=== PATIENT | female | born 1945 | race Caucasian/White ===

== ENCOUNTER → 2022-07-05 14:04 | Outpatient (CLI) | payer MEDICARE, SELFPAY ==
--- NOTE | 2022-07-05 14:09 | XR_ITS ---
FINAL REPORT CLINICAL HISTORY: LT FOOT PAIN COMPARISON: None none FINDINGS: LEFT FOOT Three views of the left foot demonstrate no acute fracture or dislocation. 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 There are moderate changes of hypertrophic osteoarthritis at the 2nd metatarsophalangeal joint as well. The soft tissues are unremarkable. IMPRESSION: No acute bony abnormality. Marked osteoarthritic degenerative changes at the 1st and 2nd metatarsophalangeal joints as described above. Reviewed, Interpreted and Dictated by Miko Madrigal MD Transcribed by Yanira Paredes Authenticated and [facility]
== END ==
PROVIDERS: PCP Family Medicine; Visit Provider Podiatrist
DX: M79.672 Pain in left foot (principal); M20.42 Other hammer toe(s) (acquired), left foot
CPT/HCPCS: 73630